=== PATIENT | male | born 1955 | race Caucasian/White ===

== ENCOUNTER 2018-03-15 09:26 | Emergency (ER) | payer MEDICAID ==
[~2018-03-15] VITALS: Ht 167.6 cm; Wt 74.5 kg
[2018-03-15 09:31] VITALS: BP 156/82
[2018-03-15] MEDS ORDERED: NACL 0.9% 1,000 ML IV ONE ×2 (09:55→10:45)
--- NOTE | 2018-03-15 10:02 | NUR ---
pt providing urine sample at this time
--- NOTE | 2018-03-15 10:10 | NUR ---
62 YO M BIB FRIEND W/ C/O WEAKNESS, POLYDIPSIA, POLYPHAGIA, POLYURIA, LOST OVER 50 POUNDS UNEXPECTEDLY. PT W/ C/O 8/10 RIGHT ARM PAIN/WEAKNESS AND "SPASMS" X A FEW WEEKS TO MONTHS. PT AOX4 TO PERSON, PLACE, TIME, AND SITUATION. GCS 15. PERRLA. EQUAL CLINICAL ACCOUNT SPECIALIST TO BL ARMS AND EQUAL PUSH AND PULL TO BL LEGS. AMBULATORY W/ STEADY GAIT. SPEAKING IN FULL, COMPLETE SENTENCES. RR ARE EVEN AND UNLABORED. ABD SOFT AND NON TENDER. NAD. VSS. AWAITING ER MD HERNANDEZ. PT CHANGED INTO GOWN AND TO CARDIAC, BP, PULSE, AND PULSE OX MONITORING. WILL CONTINUE TO MONITOR.
--- NOTE | 2018-03-15 10:10 | NUR ---
Note undone in EDM - 03/15/18 at 1610 by [email or web address] 62 YO M BIB FRIEND W/ C/O WEAKNESS, POLYDIPSIA, POLYPHAGIA, POLYURIA, LOST OVER 50 POUNDS UNEXPECTEDLY. PT W/ C/O 8/10 RIGHT ARM PAIN/WEAKNESS X A FEW WEEKS TO MONTHS. PT AOX4 TO PERSON, PLACE, TIME, AND SITUATION. GCS 15. AMBULATORY W/ STEADY GAIT. SPEAKING IN FULL, COMPLETE SENTENCES. RR ARE EVEN AND UNLABORED. ABD SFO AND NON TENDER. NAD. VSS. AWAITING ER MD HERNANDEZ. PT CHANGED INTO GOWN AND TO CARDIAC, BP, PULSE, AND PULSE OX MONITORING. WILL CONTINUE TO MONITOR.
[2018-03-15 10:16] LABS: BASOPHILS # (AUTO) 0.1 K/uL (0.00-0.22); BASOPHILS % (AUTO) 1.2 % (0.0-2.0); EOSINOPHILS # (AUTO) 0.1 K/uL (0-0.4); EOSINOPHILS % (AUTO) 1.5 % (0.0-4.0); HEMATOCRIT 42.7 % (36-52); LYMPHOCYTES # (AUTO) 0.9 K/uL (2.0-11.5); LYMPHOCYTES % (AUTO) 15.3 % (20.5-51.1); MEAN CORPUSCULAR HEMOGLOBIN 28 pg (27-31); MEAN CORPUSCULAR HGB CONC 33 g/dL (33-37); MEAN CORPUSCULAR VOLUME 86.6 fL (80-94); MONOCYTES # (AUTO) 0.3 K/uL (0.8-1.0); MONOCYTES % (AUTO) 5.6 % (1.7-9.3); NEUTROPHILS # (AUTO) 4.4 K/uL (1.8-7.7); NEUTROPHILS % (AUTO) 76.4 % (42.2-75.2); PLATELET COUNT (AUTO) 153 K/uL (140-450); RED BLOOD CELL COUNT(AUTO) 4.93 MIL/uL (4.20-6.10); RED CELL DISTRIBUTION WIDTH 13.6 % (11.6-13.7); WHITE BLOOD COUNT (AUTO) 5.8 K/uL (4.8-10.8)
[2018-03-15 10:20] LABS: APPEARANCE,URINE CLEAR (CLEAR); COLOR,URINE YELLOW (YELLOW); PH,URINE 6.5 (5.0-9.0)
[2018-03-15 10:21] LABS: BILIRUBIN,URINE NEGATIVE (NEGATIVE); BLOOD, URINE NEGATIVE (NEGATIVE); LEUKOCYTE ESTERASE ,URINE NEGATIVE (NEGATIVE); NITRITE, URINE NEGATIVE (NEGATIVE); UGLUCOSE 3+ (NEGATIVE)
--- NOTE | 2018-03-15 10:21 | NUR ---
ivfluids infusing w/o difficultly. nad. vss. will cotinue to monitor.
[2018-03-15 10:42] LABS: PROTHROMBIN TIME 9.4 secs (10.8-13.4); SODIUM SERUM 128 mmol/L (136-145)
[2018-03-15 10:43] LABS: ASPARTATE AMINOTRANSFERASE 18 U/L (15-37); CARBON DIOXIDE 28.5 mmol/L (21-32); CHLORIDE 91 mmol/L (98-107); GFR ARICAN-AMERICAN 98 mL/min (>90); POTASSIUM 4.5 mmol/L (3.5-5.1); TOTAL BILIRUBIN 0.5 mg/dL (0.0-1.0); UREA NITROGEN, BLOOD 24 mg/dL (7-18)
[2018-03-15 10:44] LABS: ACETONE, SERUM NEGATIVE (NEGATIVE); ALBUMIN 3.4 g/dL (3.4-5.0)
[2018-03-15 10:46] LABS: GLUCOSE 654 mg/dL (74-106)
[2018-03-15] MEDS ORDERED: INSULIN REGULAR, HUMAN 100 UNIT/ML VIAL SUBQ ONE (11:05)
--- NOTE | 2018-03-15 12:42 | NUR ---
er md carney by bedside re-evaluating patient
--- NOTE | 2018-03-15 13:22 | NUR ---
patient with no complaints. nad. vss. will continue to monitor.
--- NOTE | 2018-03-15 14:09 | NUR ---
ATTEMPTED TO CALL TO GIVE REPORT; ON HOLD FOR 15 MINS; INFORMED YUE VALDEZMARITIME GUARD
--- NOTE | 2018-03-15 14:30 | NUR ---
Patient appears to be resting comfortably in bed. Vital Signs within normal limits. Respirations even and unlabored. Pt is alert and talkative.
--- NOTE | 2018-03-15 15:55 | NUR ---
Patient to be transferred to [facility]. Is being transferred due to higher level of care. Receiving facility has accepting physician and available space. ER physician has signed transfer form. Patient or responsible republican has agreed to transfer and signed form. Patient belongings inventoried and will be sent with patient. Copy of nursing notes, lab reports, EKG, Physicians Orders and X-rays to be sent with patient. Bedside report called to Kiran VALDEZ at receiving facility. [facility] ambulance service has been called for transfer. ETA is 10 mins.
[2018-03-15 16:00] VITALS: BP 109/59
--- NOTE | 2018-03-15 16:00 | NUR ---
patient extied er with amr als via gurney without incident
== END 2018-03-15 16:00 | disposition short-term general hospital (02) ==
LOC: MED 09:26
DX: E11.65 Type 2 diabetes mellitus with hyperglycemia (principal); I61.9 Nontraumatic intracerebral hemorrhage, unspecified; E86.0 Dehydration
CPT/HCPCS: 36415; 36600; 70450; 71045; 80053; 81003; 82009; 82140; 82803; 82948; 84484; 85025; 85610; 85730; 93005; 96360; 96361; 96372; 99285; J1815; J7030; Q0092

== ENCOUNTER 2018-03-23 10:21 | Emergency (ER) | payer MEDICAID ==
[~2018-03-23] VITALS: Ht 170.2 cm; Wt 73.5 kg
[2018-03-23 10:28] VITALS: BP 135/90
--- NOTE | 2018-03-23 10:35 | NUR ---
PATIENT AMBULATED TO BED 7 AT THIS TIME.
--- NOTE | 2018-03-23 10:40 | NUR ---
bib friend with c/o hyperglycemia. Patient reports unable to get insulin d/t insurance coverage. Patient reports of feeling weak. Was discharge from [facility] 3 days ago. pt bed down, locked, bedrail up x 1, er md aware and notified of pt status. hx--diabetes rx--Insulin Glargine 20units bid, Insulin Lispro 10units tid
--- NOTE | 2018-03-23 11:15 | NUR ---
Jess ashraf in [facility] - 03/23/18 at 1205 by MEDFL pt taken to ct
--- NOTE | 2018-03-23 11:16 | NUR ---
pt taken to ct
--- NOTE | 2018-03-23 11:16 | NUR ---
Patient being evaluated by at bedside.
[2018-03-23] MEDS ORDERED: NACL 0.9% 1,000 ML IV ONE (11:25)
[2018-03-23] MEDS ORDERED: ONDANSETRON 4 MG/2 ML VIAL IVP ONE (11:25)
[2018-03-23] MEDS ORDERED: NACL 0.9% 1,000 ML IV SCH (11:25)
[2018-03-23] MEDS ORDERED: INSULIN REGULAR, HUMAN 100 UNIT/ML VIAL IVP ONE (11:25)
--- NOTE | 2018-03-23 11:25 | NUR ---
pt taken to ct
--- NOTE | 2018-03-23 11:36 | NUR ---
ekg being done at bedside
--- NOTE | 2018-03-23 12:03 | NUR ---
rt at bedside
[2018-03-23 12:04] LABS: BASOPHILS % (AUTO) 0.6 % (0.0-2.0); EOSINOPHILS # (AUTO) 0.1 K/uL (0-0.4); EOSINOPHILS % (AUTO) 1.5 % (0.0-4.0); HEMATOCRIT 44.6 % (36-52); HEMOGLOBIN 14.8 g/dL (12.0-18.0); LYMPHOCYTES % (AUTO) 16.3 % (20.5-51.1); MEAN CORPUSCULAR HEMOGLOBIN 29 pg (27-31); MEAN CORPUSCULAR HGB CONC 33 g/dL (33-37); MEAN CORPUSCULAR VOLUME 86.4 fL (80-94); MONOCYTES # (AUTO) 0.3 K/uL (0.8-1.0); MONOCYTES % (AUTO) 5.1 % (1.7-9.3); NEUTROPHILS # (AUTO) 4.9 K/uL (1.8-7.7); NEUTROPHILS % (AUTO) 76.5 % (42.2-75.2); PLATELET COUNT (AUTO) 188 K/uL (140-450); RED BLOOD CELL COUNT(AUTO) 5.16 MIL/uL (4.20-6.10); RED CELL DISTRIBUTION WIDTH 13.5 % (11.6-13.7); WHITE BLOOD COUNT (AUTO) 6.4 K/uL (4.8-10.8)
[2018-03-23 12:07] LABS: APPEARANCE,URINE CLEAR (CLEAR); BILIRUBIN,URINE NEGATIVE (NEGATIVE); BLOOD, URINE NEGATIVE (NEGATIVE); COLOR,URINE YELLOW (YELLOW); LEUKOCYTE ESTERASE ,URINE NEGATIVE (NEGATIVE); NITRITE, URINE NEGATIVE (NEGATIVE); UGLUCOSE 3+ (NEGATIVE)
[2018-03-23 12:12] LABS: ANION GAP 9.5 (8-16); CARBON DIOXIDE 32.6 mmol/L (21-32); CHLORIDE 98 mmol/L (98-107); CREATININE 0.8 mg/dL (0.7-1.3); GFR ARICAN-AMERICAN 126 mL/min (>90); GLUCOSE 371 mg/dL (74-106); POTASSIUM 4.1 mmol/L (3.5-5.1); SODIUM SERUM 136 mmol/L (136-145); UREA NITROGEN, BLOOD 21 mg/dL (7-18)
[2018-03-23 12:14] LABS: BARBITURATE, URINE NEG. ng/ml (NEG <=200); BENZODIAZEPINE, URINE NEG. ng/mL (NEG <=200); CANNABINOID, URINE NEG. ng/mL (NEG <=50); COCAINE, URINE NEG. ng/mL (NEG <=300); OPIATE, URINE NEG. ng/mL (NEG <=2000); PHENCYCLIDINE SCREEN,URINE NEG. ng/mL (NEG <=25)
--- NOTE | 2018-03-23 12:20 | NUR ---
RECEIVED CRITICAL REPORT FROM RADIOLOGY. REPORT GIVEN TO DR COLON.
[2018-03-23 12:24] LABS: ALBUMIN 3.8 g/dL (3.4-5.0); AMYLASE 68 U/L (25-115); ASPARTATE AMINOTRANSFERASE 22 U/L (15-37); LIPASE 259 U/L (73-393); TOTAL BILIRUBIN 0.7 mg/dL (0.0-1.0)
[2018-03-23 12:46] LABS: PROTHROMBIN TIME 10.3 secs (10.8-13.4)
[2018-03-23 12:51] LABS: D-DIMER < 100 ng/ml (0-400)
[2018-03-23 13:14] VITALS: BP 130/83
--- NOTE | 2018-03-23 13:14 | NUR ---
NS 1000ml bolus IVF end time 1314
--- NOTE | 2018-03-23 13:14 | NUR ---
Patient to be transferred to [facility]. Is being transferred due to higher level of care. Receiving facility has accepting physician and available space. ER physician has signed transfer form. Patient or responsible libertarian has agreed to transfer and signed form. Patient belongings inventoried and will be sent with patient. Copy of nursing notes, lab reports, EKG, Physicians Orders and X-rays to be sent with patient. Report called to chanel doan rn at receiving facility. [facility] ambulance service has been called for transfer. ETA is 1314.
--- NOTE | 2018-03-23 13:14 | NUR ---
NS 1000ml @ 100ml/hr end time 0870
[2018-03-23 13:18] LABS: ACETONE, SERUM NEGATIVE (NEGATIVE)
== END 2018-03-23 13:14 | disposition short-term general hospital (02) ==
LOC: MED 10:21
DX: I63.9 Cerebral infarction, unspecified (principal); E11.65 Type 2 diabetes mellitus with hyperglycemia; R94.31 Abnormal electrocardiogram [ECG] [EKG]
CPT/HCPCS: 36415; 36600; 70450; 80053; 80305; 81003; 82009; 82140; 82150; 82803; 82948; 83036; 83605; 83690; 83735; 84484; 85025; 85379; 85610; 85730; 93005; 96361; 96374; 96375; 99285; G0482; J1815; J2405; J7030

== ENCOUNTER 2018-03-24 09:47 | Emergency (ER) | payer MEDICAID ==
[~2018-03-24] VITALS: Ht 170.2 cm; Wt 73.9 kg
--- NOTE | 2018-03-24 09:58 | NUR ---
PATIENT AMBULATED TO BED 3 AT THIS TIME.
[2018-03-24 10:00] VITALS: BP 115/79
--- NOTE | 2018-03-24 10:05 | NUR ---
62Y/M BIB FRIEND WITH C/O ELEVATED BLOOD SUGAR. ACU CHECK 340. WAS DX WITH CRANIAL BLEED ON 03/15/18. WAS D/C YESTERDAY FOR CVA. PER PT UNABLE TO GET PRESCRIBED MEDICATION D/T PROBLEMS WITH INSURANCE. PT AAOX4, VSS AT THIS TIME, BED DOWN, BEDRAIL UP X 1, ER MD AWARE AND NOTIFIED OF PT STATUS. HX; CVA, DM RX; NOT TAKING
[2018-03-24] MEDS ORDERED: NACL 0.9% 500 ML IV ONE (10:25)
--- NOTE | 2018-03-24 10:26 | NUR ---
Patient being evaluated by physician at bedside.
[2018-03-24 10:39] LABS: BASOPHILS # (AUTO) 0.1 K/uL (0.00-0.22); BASOPHILS % (AUTO) 0.9 % (0.0-2.0); EOSINOPHILS # (AUTO) 0.1 K/uL (0-0.4); EOSINOPHILS % (AUTO) 2.1 % (0.0-4.0); HEMATOCRIT 40.4 % (36-52); HEMOGLOBIN 13.3 g/dL (12.0-18.0); LYMPHOCYTES # (AUTO) 0.8 K/uL (2.0-11.5); LYMPHOCYTES % (AUTO) 13.7 % (20.5-51.1); MEAN CORPUSCULAR HEMOGLOBIN 28 pg (27-31); MEAN CORPUSCULAR HGB CONC 33 g/dL (33-37); MEAN CORPUSCULAR VOLUME 86.4 fL (80-94); MONOCYTES # (AUTO) 0.4 K/uL (0.8-1.0); MONOCYTES % (AUTO) 6.5 % (1.7-9.3); NEUTROPHILS # (AUTO) 4.7 K/uL (1.8-7.7); NEUTROPHILS % (AUTO) 76.8 % (42.2-75.2); PLATELET COUNT (AUTO) 169 K/uL (140-450); RED BLOOD CELL COUNT(AUTO) 4.68 MIL/uL (4.20-6.10); RED CELL DISTRIBUTION WIDTH 13.1 % (11.6-13.7); WHITE BLOOD COUNT (AUTO) 6.1 K/uL (4.8-10.8)
[2018-03-24 10:46] LABS: ANION GAP 9.9 (8-16); CARBON DIOXIDE 30.1 mmol/L (21-32); CHLORIDE 99 mmol/L (98-107); CREATININE 0.8 mg/dL (0.7-1.3); GFR ARICAN-AMERICAN 126 mL/min (>90); GLUCOSE 357 mg/dL (74-106); SODIUM SERUM 135 mmol/L (136-145); UREA NITROGEN, BLOOD 22 mg/dL (7-18)
[2018-03-24 10:49] LABS: ACETONE, SERUM NEGATIVE (NEGATIVE)
[2018-03-24 10:52] LABS: ALBUMIN 3.2 g/dL (3.4-5.0); ASPARTATE AMINOTRANSFERASE 16 U/L (15-37); TOTAL BILIRUBIN 0.5 mg/dL (0.0-1.0)
--- NOTE | 2018-03-24 11:59 | NUR ---
Escrow Clerk Note: I was informed by Noemi Baxter from Emergency Room, patient and patient's caregiver Margo stated they are having difficulty filling patient's prescription/s due to health insurance coverage. I met with patient and Margo at bedside. Per Margo, she went to [facility] and she was told patient's health insurance is not active. I called [facility] and spoke with Rosie, I asked her what type of insurance had Margo and/or patient provided them with. Per Rosie, Margo provided them with an IEHP card. Patients face sheet indicates he has [employer] coverage, policy #[id number], not IEHP. I provided Rosie with patients Medical policy number and requested for her to please check patient's [employer] eligibility. Per Rosie, patient's [employer] is active. Rosie told me to tell Margo to go back to their pharmacy and take prescriptions so they can check whether prescriptions can be covered by [employer]. I explained to Margo she had provided [facility] with an IEHP card that was not longer valid and explained to her patient currently has [employer] coverage. I provided Margo with [employer] policy number and instructed her to return to [facility] and provide them with prescription. She verbalized understanding and left. I called and spoke with Rosie from [facility]. Per Rosie, Margo went to their pharmacy and was able fill patient's prescription.
[2018-03-24] MEDS ORDERED: INSULIN REGULAR, HUMAN 100 UNIT/ML VIAL IVP ONE (12:20)
[2018-03-24 13:18] VITALS: BP 120/81
--- NOTE | 2018-03-24 13:18 | NUR ---
Patient discharged with v/s stable. Written and verbal after care instructions given and explained. Patient verbalized understanding. Ambulatory with steady gait. All questions addressed prior to discharge. Advised to follow up with PMD.
== END 2018-03-24 13:18 | disposition home or self-care (01) ==
LOC: MED 09:47
DX: E11.65 Type 2 diabetes mellitus with hyperglycemia (principal); Z86.73 Personal history of transient ischemic attack (TIA), and cerebral infarction without residual deficits
CPT/HCPCS: 36415; 80053; 82009; 82948; 85025; 96372; 99283; J1815; J7030

== ENCOUNTER 2018-04-01 09:11 | Inpatient (IN) | payer MEDICAID ==
[2018-04-01] VITALS (7 sets, daily range): BP systolic 125–148; BP diastolic 78–92
[~2018-04-01] VITALS: Ht 170.2 cm; Wt 68.0 kg
--- NOTE | 2018-04-01 09:14 | NUR ---
Patient wheelchair assisted to bed 10.
[2018-04-01] MEDS ORDERED: LANTUS SUBQ (09:16)
[2018-04-01] MEDS ORDERED: HUM SUBQ (09:16)
--- NOTE | 2018-04-01 09:29 | NUR ---
62 YO MALE BIB FRIEND VIA WHEELCHAIR FOR SUDDEN ONSET OF GENERAL WEKNESS X 7.30 THIS AM, HX OF CVA, DM. SEEN HERE TWICE FOR INTRACRANIAL BLEED. PT REPORTED HE FEEL WEAK LEFT LEG X THIS AM. SKIN IS PINK/WARM/DRY; AAOX4 .LUNGS CLEAR BL; HR EVEN AND REGULAR; PT DENIES ANY FEVER, CP, SOB, OR COUGH AT THIS TIME; PATIENT STATES PAIN OF 0/10 AT THIS TIME. PATIENT POSITIONED FOR COMFORT; HOB ELEVATED; BEDRAILS UP X2; BED DOWN. ER MD MADE AWARE OF PT STATUS.
--- NOTE | 2018-04-01 09:32 | NUR ---
Patient being evaluated by DR CONKLIN at bedside.
[2018-04-01] MEDS ORDERED: INSULIN REGULAR, HUMAN 100 UNIT/ML VIAL SUBQ ONE (09:40)
[2018-04-01] MEDS ORDERED: NACL 0.9% 1,000 ML IV ONE (09:40)
[2018-04-01 09:56] LABS: BASOPHILS # (AUTO) 0.1 K/uL (0.00-0.22); BASOPHILS % (AUTO) 0.8 % (0.0-2.0); EOSINOPHILS # (AUTO) 0.1 K/uL (0-0.4); EOSINOPHILS % (AUTO) 2.2 % (0.0-4.0); HEMATOCRIT 43.8 % (36-52); HEMOGLOBIN 14.4 g/dL (12.0-18.0); LYMPHOCYTES % (AUTO) 14.9 % (20.5-51.1); MEAN CORPUSCULAR HEMOGLOBIN 29 pg (27-31); MEAN CORPUSCULAR HGB CONC 33 g/dL (33-37); MEAN CORPUSCULAR VOLUME 86.5 fL (80-94); MONOCYTES # (AUTO) 0.3 K/uL (0.8-1.0); NEUTROPHILS % (AUTO) 77.1 % (42.2-75.2); PLATELET COUNT (AUTO) 172 K/uL (140-450); RED BLOOD CELL COUNT(AUTO) 5.06 MIL/uL (4.20-6.10); RED CELL DISTRIBUTION WIDTH 13.3 % (11.6-13.7); WHITE BLOOD COUNT (AUTO) 6.5 K/uL (4.8-10.8)
[2018-04-01 10:14] LABS: ALBUMIN 3.7 g/dL (3.4-5.0); ANION GAP 12.2 (8-16); ASPARTATE AMINOTRANSFERASE 19 U/L (15-37); CARBON DIOXIDE 27.9 mmol/L (21-32); CHLORIDE 104 mmol/L (98-107); CREATININE 0.7 mg/dL (0.7-1.3); GFR ARICAN-AMERICAN 147 mL/min (>90); GLUCOSE 258 mg/dL (74-106); POTASSIUM 4.1 mmol/L (3.5-5.1); SODIUM SERUM 140 mmol/L (136-145); TOTAL BILIRUBIN 0.7 mg/dL (0.0-1.0); UREA NITROGEN, BLOOD 16 mg/dL (7-18)
--- NOTE | 2018-04-01 10:21 | NUR ---
PT URENATED 450 CC; YELLOW. SPECIMEN SENT TO LAB
[2018-04-01 10:34] LABS: PROTHROMBIN TIME 9.8 secs (10.8-13.4)
[2018-04-01 11:03] LABS: APPEARANCE,URINE CLEAR (CLEAR); BILIRUBIN,URINE NEGATIVE (NEGATIVE); BLOOD, URINE NEGATIVE (NEGATIVE); COLOR,URINE YELLOW (YELLOW); LEUKOCYTE ESTERASE ,URINE NEGATIVE (NEGATIVE); NITRITE, URINE NEGATIVE (NEGATIVE); UGLUCOSE 2+ (NEGATIVE)
[2018-04-01 11:04] LABS: BARBITURATE, URINE NEG. ng/ml (NEG <=200); BENZODIAZEPINE, URINE NEG. ng/mL (NEG <=200); CANNABINOID, URINE NEG. ng/mL (NEG <=50); COCAINE, URINE NEG. ng/mL (NEG <=300); OPIATE, URINE NEG. ng/mL (NEG <=2000); PHENCYCLIDINE SCREEN,URINE NEG. ng/mL (NEG <=25)
--- NOTE | 2018-04-01 11:11 | NUR ---
PT URENATED 400 CC ;YELLOW.
[2018-04-01] MEDS ORDERED: HYDROcodone/APAP 5/325 MG 1 TAB TAB PO PRN (11:40)
[2018-04-01] MEDS ORDERED: ACETAMINOPHEN 325 MG TAB PO PRN (11:40)
[2018-04-01] MEDS ORDERED: ONDANSETRON 4 MG/2 ML VIAL IM/IVP PRN (11:40)
[2018-04-01] MEDS ORDERED: DOCUSATE SODIUM 100 MG GELCAP PO PRN (11:40)
[2018-04-01] MEDS ORDERED: LORazepam 2 MG/ML VIAL IM/IVP PRN (11:40)
--- NOTE | 2018-04-01 11:56 | NUR ---
Patient appears to be resting comfortably in bed. Vital Signs within normal limits. Respirations even and unlabored.WILL CONTINUE TO MONITOR.
--- NOTE | 2018-04-01 12:20 | NUR ---
RECEIVED REPORT FROM ED RN. PT IN STABLE CONDITION. DENIES PAIN AND DISCOMFORT AT THIS TIME. PT IS AMBULATORY BUT VERY WEAK ON LEFT SIDE. DECREASED STRENGTH OF LLE AND LUE. DENIES NUMBNESS, TINGLING, NASCIMENTO, LIGHTHEADNESS/DIZZINESS, SOB. SMILE/FROWN EQUAL BILATERALLY. SKIN INTACT. HEART RHYTHM REGULAR. LUNGS CTA. SR ON TELE. VITALS STABLE. ALL SAFETY PRECAUTIONS INITIATED, WILL CONTINUE TO MONITOR.
--- NOTE | 2018-04-01 12:22 | NUR ---
Patient will be admitted to care of DR CAMEJO. Admited to TELE. Will go to room 107B. Belongings list completed. Report to JACOB VALDEZ.
[2018-04-01] MEDS: NACL 0.9% 1,000 ML IV SCH (13:13)
--- NOTE | 2018-04-01 14:02 | NUR ---
ADMISSION HISTORY OBTAINED FROM PATIENT, FRIEND AT BEDSIDE, AND MEDICAL RECORDS.
[2018-04-01] MEDS ORDERED: DEXTROSE 50% 50 ML SYR IVP PRN (14:05)
[2018-04-01 14:15] LABS: MAGNESIUM 1.8 mg/dL (1.8-2.4); THYROID STIMULATING HORMONE 3.02 uIU/mL (0.34-3.74)
[2018-04-01] MEDS: BLOOD GLUCOSE MONITORING 1 DEV DEV FS SCH ×2 (16:38→20:26)
[2018-04-01] MEDS: INSULIN LISPRO SLIDING SCALE 100 UNITS/ML VIAL SUBQ PRN ×2 (16:40→20:27)
--- NOTE | 2018-04-01 17:23 | NUR ---
PT SITTING UP IN BED, WATCHING TV. NO C/O PAIN OR DISCOMFORT. WILL CONTINUE TO MONITOR.
--- NOTE | 2018-04-01 18:50 | NUR ---
ORTHOSTATIC BP OBTAINED AND CHARTED. PT IS ABLE TO STAND UP WITH ASSIST AND CONTINUE STANDING INDEPENDENTLY BUT ADMITS TO FATIGUE WITH STANDING.
--- NOTE | 2018-04-01 19:28 | NUR ---
ENDORSED POC TO GRADES 7 AND 8 VISITING TEACHER RN. PT IN STABLE CONDITION.
--- NOTE | 2018-04-01 19:30 | NUR ---
RECEIVED FROM AM RN IN BED AWAKE AND TALKING ON THE PHONE WITH FAMILY MEMBER. ABLE TO VERBALIZE SIMPLE NEEDS IN SLOVAK AND CHINESE. CALL LIGHT WITH IN REACH AND NO NOTED RESTLESSNESS. TELEMETRY MONITORING. DX. OF LEFT LEG WEAKNESS. RAPID RESPONSE RE-ORIENTED.
--- NOTE | 2018-04-01 23:12 | NUR ---
SLEEPING. WAKES UP EASILY WHEN TOUCHED RT VITAL SIGNS TAKEN. NO COMPLAINTS DONE. SLEPT BACK EASILY. TELEMETRY MONITORING. IVF SITE INTACT AND NO INFILTRATION.
[2018-04-02] VITALS: BP 134/85
--- NOTE | 2018-04-02 02:10 | NUR ---
SEEN PT. AWAKE AND USED URINAL AT THE EDGE OF HIS BED. INDEPENDENT. NO SOB.
[2018-04-02] MEDS: NACL 0.9% 1,000 ML IV SCH ×2 (03:43→20:35)
--- NOTE | 2018-04-02 04:48 | NUR ---
SLEEPING WELL THIS SHIFT. NO COMPLAINTS DONE.
[2018-04-02] MEDS: BLOOD GLUCOSE MONITORING 1 DEV DEV FS SCH ×4 (05:55→20:35)
[2018-04-02] MEDS: INSULIN LISPRO SLIDING SCALE 100 UNITS/ML VIAL SUBQ PRN ×4 (05:57→20:54)
--- NOTE | 2018-04-02 06:20 | NUR ---
PATIENT HAS BEEN SCREENED AND CATEGORIZED HIGH NUTRITION RISK. PATIENT WILL BE SEEN WITHIN 1-2 DAYS OF ADMISSION. 04/02/18-04/03/18 BARBARA RODAS MS, RDN
--- NOTE | 2018-04-02 06:58 | NUR ---
PT. AWAKE AND WATCHING TV. NO COMPLAINTS OF ANY PAIN AT THIS TIME. ABLE TO VERBALIZE SIMPLE NEEDS. TELEMETRY MONITORING.
[2018-04-02 07:20] LABS: BASOPHILS # (AUTO) 0.1 K/uL (0.00-0.22); BASOPHILS % (AUTO) 1.3 % (0.0-2.0); EOSINOPHILS # (AUTO) 0.1 K/uL (0-0.4); EOSINOPHILS % (AUTO) 2.1 % (0.0-4.0); HEMATOCRIT 43.8 % (36-52); HEMOGLOBIN 14.4 g/dL (12.0-18.0); LYMPHOCYTES # (AUTO) 1.2 K/uL (2.0-11.5); LYMPHOCYTES % (AUTO) 18.5 % (20.5-51.1); MEAN CORPUSCULAR HEMOGLOBIN 29 pg (27-31); MEAN CORPUSCULAR HGB CONC 33 g/dL (33-37); MEAN CORPUSCULAR VOLUME 86.6 fL (80-94); MONOCYTES # (AUTO) 0.3 K/uL (0.8-1.0); MONOCYTES % (AUTO) 4.7 % (1.7-9.3); NEUTROPHILS # (AUTO) 4.9 K/uL (1.8-7.7); NEUTROPHILS % (AUTO) 73.4 % (42.2-75.2); PLATELET COUNT (AUTO) 152 K/uL (140-450); RED BLOOD CELL COUNT(AUTO) 5.06 MIL/uL (4.20-6.10); RED CELL DISTRIBUTION WIDTH 13.2 % (11.6-13.7); WHITE BLOOD COUNT (AUTO) 6.7 K/uL (4.8-10.8)
--- NOTE | 2018-04-02 07:20 | NUR ---
RECEIVED REPORT FROM SUPERVISOR PROP MAKING NURSE FOR CONTINUITY OF CARE. PT IN STABLE CONDITION. RESPIRATIONS EVEN AND UNLABORED. IV INTACT AND PATENT. SAFETY MEASURES IN PLACE. CALL LIGHT AT BEDSIDE. BED IN LOW POSITION. WILL CONTINUE TO MONITOR.
[2018-04-02 07:51] LABS: CARBON DIOXIDE 32.1 mmol/L (21-32); CREATININE 0.7 mg/dL (0.7-1.3); POTASSIUM 4.1 mmol/L (3.5-5.1)
[2018-04-02 08:00] VITALS: BP 134/82
[2018-04-02 08:03] LABS: CHOL/HDL RATIO 3.7 (1-4.5)
--- NOTE | 2018-04-02 08:10 | NUR ---
ASSISTED PT TO RESTROOM. PT ABLE TO AMBULATE WITH ASSIST. PT TOLERATED WELL. WILL CONTINUE TO MONITOR.
[2018-04-02 08:15] LABS: MAGNESIUM 1.8 mg/dL (1.8-2.4); PHOSPHORUS 3.6 mg/dL (2.5-4.9)
[2018-04-02 12:00] VITALS: BP 130/75
--- NOTE | 2018-04-02 13:45 | NUR ---
ASSISTED TO BEDSIDE COMMODE. LARGE SOLID BOWEL MOVEMENT AT THIS TIME. WILL CONTINUE TO MONITOR.
[2018-04-02] MEDS ORDERED: DOCUSATE 100 MG/10 ML UDC GT PRN (14:05)
--- NOTE | 2018-04-02 14:16 | NUR ---
SPOKE TO JAI A FRIEND OF THE PT. PT WILL NOT BE ABLE TO RETURN HOME DUE TO CARE NEEDS. JAI WOULD LIKE TO TALK TO CASE MANAGEMENT TO DISCUSS ALTERNATIVES.
--- NOTE | 2018-04-02 15:02 | NUR ---
PT LYING IN BED SLEEPING AT THIS TIME. RESPIRATIONS EVEN AND UNLABORED. WILL CONTINUE TO MONITOR.
[2018-04-02 16:00] VITALS: BP 118/70
--- NOTE | 2018-04-02 18:53 | NUR ---
WILL GIVE REPORT TO RN LABOR DELIVERY NURSE FOR CONTINUITY OF CARE. PT IN STABLE CONDITION.
--- NOTE | 2018-04-02 19:00 | NUR ---
RECEIVED REPORT FROM DAY SHIFT NURSE NELSON-RN AT BEDSIDE. PT RESTING IN BED, AOX4- INDONESIAN SPEAKING, ON ROOM AIR WITH RIGHT AC #20G RUNNING NS @ 60ML/HR. DISCUSSED PLAN OF CARE AND PT VERBALIZED UNDERSTANDING. NO S/S OF RESPIRATORY DISTRESS OR DISCOMFORT NOTED AT THIS TIME. BED IN LOWEST POSITION, BED BREAKS ON, BOTH SIDE RAILS UP AND FALL PRECAUTIONS IN PLACE. BEDSIDE TABLE AND CALL LIGHT ARE WITHIN REACH. WILL CONTINUE TO MONITOR.
[2018-04-02 20:00] VITALS: BP 139/82
--- NOTE | 2018-04-02 20:00 | NUR ---
VITAL SIGNS TAKEN AND TOLERATED WELL. BLOOD GLUCOSE 219- WILL ADMINISTER INSULIN COVERAGE. NO S/S OF RESPIRATORY DISTRESS OR DISCOMFORT NOTED AT THIS TIME. WILL CONTINUE TO MONITOR.
--- NOTE | 2018-04-02 20:54 | NUR ---
INSULIN COVERAGE GIVEN AND TOLERATED WELL. NO S/S OF RESPIRATORY DISTRESS OR DISCOMFORT NOTED AT THIS TIME. WILL CONTINUE TO MONITOR.
[2018-04-02] MEDS ORDERED: ZOLPIDEM 5 MG TAB PO SCH (21:50)
--- NOTE | 2018-04-02 22:29 | NUR ---
PT C/O INSOMNIA. SPOKE WITH DR. SINGLETON AND SHE ORDERED AMBIEN. MEDICATION WAS ADMINISTERED AND TOLERATED WELL. NO S/S OF RESPIRATORY DISTRESS OR DISCOMFORT NOTED AT THIS TIME. WILL CONTINUE TO MONITOR.
[2018-04-03] VITALS: BP 121/68
--- NOTE | 2018-04-03 | NUR ---
VITAL SIGNS TAKEN AND TOLERATED WELL. NO S/S OF RESPIRATORY DISTRESS OR DISCOMFORT NOTED AT THIS TIME. WILL CONTINUE TO MONITOR.
--- NOTE | 2018-04-03 02:00 | NUR ---
PT CONTINUES TO SLEEP IN BED. NO S/S OF RESPIRATORY DISTRESS OR DISCOMFORT NOTED AT THIS TIME. WILL CONTINUE TO MONITOR.
[2018-04-03 04:00] VITALS: BP 111/54
--- NOTE | 2018-04-03 04:00 | NUR ---
VITAL SIGNS TAKEN AND TOLERATED WELL. NO S/S OF RESPIRATORY DISTRESS OR DISCOMFORT NOTED AT THIS TIME. WILL CONTINUE TO MONITOR.
--- NOTE | 2018-04-03 06:00 | NUR ---
BLOOD GLUCOSE 174- WILL ADMINISTER INSULIN COVERAGE. NO S/S OF RESPIRATORY DISTRESS OR DISCOMFORT NOTED AT THIS TIME. WILL CONTINUE TO MONITOR.
[2018-04-03] MEDS: BLOOD GLUCOSE MONITORING 1 DEV DEV FS SCH ×4 (06:24→21:56)
[2018-04-03] MEDS: INSULIN LISPRO SLIDING SCALE 100 UNITS/ML VIAL SUBQ PRN ×4 (06:26→21:59)
--- NOTE | 2018-04-03 06:26 | NUR ---
INSULIN COVERAGE GIVEN AND TOLERATED WELL. NO S/S OF RESPIRATORY DISTRESS OR DISCOMFORT NOTED AT THIS TIME. WILL CONTINUE TO MONITOR.
[2018-04-03 06:42] LABS: ANION GAP 8.9 (8-16); CARBON DIOXIDE 29.1 mmol/L (21-32); CREATININE 0.7 mg/dL (0.7-1.3)
[2018-04-03 06:45] LABS: MAGNESIUM 1.7 mg/dL (1.8-2.4); PHOSPHORUS 3.7 mg/dL (2.5-4.9)
--- NOTE | 2018-04-03 07:15 | NUR ---
RECEIVED REPORT FROM DIRECTOR STRATEGIC ACCOUNT MANAGEMENT NURSE AT BEDSIDE. PT RESTING IN BED, AAOX4, NO S/S OF ACUTE DISTRESS ON ROOM AIR. IV NOTED TO RIGHT AC, #20G, PATENT AND INTACT, RUNNING NS AT 60ML/HR. BED IN LOWEST POSITION, BED BRAKES ON, BED ALARM ON AND FALL PRECAUTIONS IN PLACE. BEDSIDE TABLE AND CALL LIGHT ARE WITHIN REACH. WILL CONTINUE TO MONITOR.
--- NOTE | 2018-04-03 07:19 | NUR ---
ENDORSED PT CARE TO DAY SHIFT NURSE SID FOR CONTINUITY OF CARE.
[2018-04-03 08:00] VITALS: BP 117/81
--- NOTE | 2018-04-03 08:00 | NUR ---
PT HAS EQUAL AND GOOD STOCK PITCHER STRENGTH BUE, HOWEVER, WHEN HELPING PT SITTING UP AT THE EDGE OF THE BED, PT LEANING TOWARD THE LEFT SIDE. PLANTAR FLEXION ARE GOOD ON BLE. LEFT SIDE IS SLIGHTLY WEAK. Addendum: 04/03/18 at 1415 by Nabeel Lawton RN PT IS EATING BREAKFAST AT THE BEDSIDE RIGHT NOW. NO S/S OF ACUTE DISTRESS.
[2018-04-03 08:19] LABS: BASOPHILS % (AUTO) 0.6 % (0.0-2.0); EOSINOPHILS # (AUTO) 0.1 K/uL (0-0.4); EOSINOPHILS % (AUTO) 2.4 % (0.0-4.0); HEMATOCRIT 41.2 % (36-52); HEMOGLOBIN 13.5 g/dL (12.0-18.0); LYMPHOCYTES # (AUTO) 1.3 K/uL (2.0-11.5); LYMPHOCYTES % (AUTO) 25.1 % (20.5-51.1); MEAN CORPUSCULAR HEMOGLOBIN 28 pg (27-31); MEAN CORPUSCULAR HGB CONC 33 g/dL (33-37); MEAN CORPUSCULAR VOLUME 86.1 fL (80-94); MONOCYTES # (AUTO) 0.3 K/uL (0.8-1.0); NEUTROPHILS # (AUTO) 3.4 K/uL (1.8-7.7); NEUTROPHILS % (AUTO) 65.9 % (42.2-75.2); PLATELET COUNT (AUTO) 148 K/uL (140-450); RED BLOOD CELL COUNT(AUTO) 4.79 MIL/uL (4.20-6.10); RED CELL DISTRIBUTION WIDTH 12.9 % (11.6-13.7); WHITE BLOOD COUNT (AUTO) 5.2 K/uL (4.8-10.8)
[2018-04-03] MEDS ORDERED: METF500T PO (08:20)
[2018-04-03] MEDS ORDERED: MAGNESIUM OXIDE 400 MG TAB PO SCH (08:30)
--- NOTE | 2018-04-03 09:10 | NUR ---
PT WALKED WITH WALKER WITH PHYSICAL THERAPIST. Addendum: 04/03/18 at 1635 by Nabeel Lawton RN UNSTEADY GAIT
[2018-04-03 12:00] VITALS: BP 139/88
[2018-04-03] MEDS: NACL 0.9% 1,000 ML IV SCH (12:25)
--- NOTE | 2018-04-03 14:10 | NUR ---
FAXED ORDER FRO FWW TO KIKE CANNON [phone] HE SAID TO FAX FACE SHEET AND ORDER TO HIM AT [phone]
--- NOTE | 2018-04-03 15:21 | NUR ---
SPOKE WITH KIKE FROM [facility]. HE WILL BE IN SOON TO SEE THE PATIENT.
[2018-04-03 16:00] VITALS: BP 140/92
--- NOTE | 2018-04-03 16:05 | NUR ---
RECEIVED MEDICAL RECORD FROM [facility], GAVE TO DR COLMENARES.
--- NOTE | 2018-04-03 16:35 | NUR ---
WALKER DELIVERED TO PT, LEFT AT THE BEDSIDE. PT TRIED IT WITH ASSISTANCE, PT HAS POOR COORDINATION AND SHUFFLING GAIT. HELPED PT BACK TO BED. BED ALARM ON. CALL LIGHT WITHIN REACH. PT'S SON AT BEDSIDE.
[2018-04-03] MEDS: metFORMIN 500 MG TAB PO SCH (16:50)
[2018-04-03] MEDS: INSULIN LANTUS 100 UNITS/ML 10 ML VIAL SUBQ SCH (16:53)
--- NOTE | 2018-04-03 19:20 | NUR ---
ENDORSED PT TO LITHOGRAPHIC CAMERA OPERATOR. PT RESTING IN BED, IN STABLE CONDITION.
--- NOTE | 2018-04-03 19:21 | NUR ---
RECEIVED REPORT FROMAM SHIFT NURSE AT BEDSIDE. PT RESTING IN BED, AAOX4, NO S/S OF ACUTE DISTRESS ON ROOM AIR. IV NOTED TO RIGHT AC, 20G, PATENT AND INTACT, INFUSING WELL NS AT 60ML/HR. BED IN LOWEST POSITION, , BED ALARM ON AND FALL PRECAUTIONS IN PLACE. BEDSIDE TABLE AND CALL LIGHT ARE WITHIN REACH. WILL CONTINUE TO MONITOR.
[2018-04-03 20:00] VITALS: BP 141/87
[2018-04-03] MEDS ORDERED: PNEUMOCOCCAL VACCINE 23 MCG/0.5 ML VIAL IMVAC PRN (20:45)
[2018-04-03] MEDS ORDERED: INFLUENZA VIRUS VACCINE QUAD 0.5 ML SYR IMVAC PRN (20:45)
--- NOTE | 2018-04-03 22:49 | NUR ---
TO SOCIAL SERVICE: [facility] [phone], PENDING TRANSFER TO A REHAB FACILITY DUE TO MEDI-PREM/ INSURANCE LIMITATION(ONLY HAVING MEDI-PREM EMERGENCY). GOT NO. FROM JAI, PT'S FRIEND WHO CALLED THIS PT.
--- NOTE | 2018-04-03 22:52 | NUR ---
TO DR SARABIA: PLS NOTE THAT JAI,FRIEND OF PT, SAID SHE WANTS TO TALK TO DR. SHE WANTS PT TO FLY BACK TO [facility], AND NEED TO KNOW THE RESULT OF THE SCAN IF HE IS FIT TO FLY.SHE ALSO WANTS A COPY OF THE SCAN IF POSSIBLE. SISTER OF PATIENT IS A PHYSICIAN IN [place]
--- NOTE | 2018-04-03 22:56 | NUR ---
[facility] #[id number]
[2018-04-04] VITALS: BP 140/80
[2018-04-04 04:00] VITALS: BP 140/80
[2018-04-04] MEDS: BLOOD GLUCOSE MONITORING 1 DEV DEV FS SCH ×3 (06:12→16:50)
[2018-04-04] MEDS: INSULIN LISPRO SLIDING SCALE 100 UNITS/ML VIAL SUBQ PRN ×2 (06:13→12:31)
[2018-04-04] MEDS: NACL 0.9% 1,000 ML IV SCH (06:17)
--- NOTE | 2018-04-04 07:10 | NUR ---
RECEIVED REPORT FROM ELECTRICIAN APPRENTICE NURSE AT BEDSIDE. PT RESTING IN BED, AAOX4, NO S/S OF ACUTE DISTRESS ON ROOM AIR. IV NOTED TO RIGHT AC, #20G, PATENT AND INTACT, RUNNING NS AT 60ML/HR. BED IN LOWEST POSITION, BED BRAKES ON, BED ALARM ON AND FALL PRECAUTIONS IN PLACE. BEDSIDE TABLE AND CALL LIGHT ARE WITHIN REACH. WILL CONTINUE TO MONITOR.
--- NOTE | 2018-04-04 07:15 | NUR ---
ENDORSED PT TO VIDEO INTERN. PT RESTING IN BED, IN STABLE CONDITION
[2018-04-04 07:28] LABS: BASOPHILS % (AUTO) 0.7 % (0.0-2.0); EOSINOPHILS # (AUTO) 0.1 K/uL (0-0.4); HEMATOCRIT 41.1 % (36-52); HEMOGLOBIN 13.5 g/dL (12.0-18.0); LYMPHOCYTES # (AUTO) 1.1 K/uL (2.0-11.5); LYMPHOCYTES % (AUTO) 18.6 % (20.5-51.1); MEAN CORPUSCULAR HEMOGLOBIN 28 pg (27-31); MEAN CORPUSCULAR HGB CONC 33 g/dL (33-37); MEAN CORPUSCULAR VOLUME 86.2 fL (80-94); MONOCYTES # (AUTO) 0.4 K/uL (0.8-1.0); NEUTROPHILS # (AUTO) 4.4 K/uL (1.8-7.7); NEUTROPHILS % (AUTO) 71.7 % (42.2-75.2); PLATELET COUNT (AUTO) 158 K/uL (140-450); RED BLOOD CELL COUNT(AUTO) 4.77 MIL/uL (4.20-6.10); RED CELL DISTRIBUTION WIDTH 12.9 % (11.6-13.7); WHITE BLOOD COUNT (AUTO) 6.1 K/uL (4.8-10.8)
[2018-04-04] MEDS: INSULIN LANTUS 100 UNITS/ML 10 ML VIAL SUBQ SCH ×2 (07:34→17:16)
[2018-04-04 08:00] VITALS: BP 129/89
[2018-04-04 08:38] LABS: ANION GAP 9.1 (8-16); CARBON DIOXIDE 29.6 mmol/L (21-32); CREATININE 0.7 mg/dL (0.7-1.3); POTASSIUM 3.7 mmol/L (3.5-5.1)
[2018-04-04 08:50] LABS: MAGNESIUM 1.8 mg/dL (1.8-2.4); PHOSPHORUS 4.3 mg/dL (2.5-4.9)
[2018-04-04] MEDS: metFORMIN 500 MG TAB PO SCH ×2 (08:54→17:00)
[2018-04-04] MEDS ORDERED: ATORVASTATIN 20 MG TAB PO SCH (09:00)
--- NOTE | 2018-04-04 10:10 | NUR ---
PT WALKED WITH WALKER WITH PHYSICAL THERAPIST TO END OF THE HALLWAY, AND RETURNED TO HIS ROOM. GAIT UNSTEADY.
--- NOTE | 2018-04-04 10:30 | NUR ---
PT STILL WEAK ON LEFT SIDE, UPPER AND LOWER EXTREMITIES. NO FACIAL DROOLING, ABLE TO RAISE BOTH EYEBROWS, SMILE IS SYMMETRICAL.
--- NOTE | 2018-04-04 11:40 | NUR ---
Banking Specialist Note: Note for 04/03/18: I faxed inquiries to [facility], phone number and [facility], phone number . I called [facility] multiple times, spoke with manager compensation of admissions dept Gladys and their clinical liaison Angelica . Both Gladys and Angelica stated they had to review inquiry and would call me back tomorrow to let me know if they can accept patient. I left messages for Adrianna at [facility] , no call back. Today 04/04/18: I called and spoke with Angelica from [facility], she stated she will let me know if they can accept patient by noon today. I called and spoke with Adrianna at [facility], she requested I fax MRI result and neurologic documentation from [facility]. She also requested CT head. I faxed information Adrianna requested to [facility]. Adrianna called me back and stated she reviewed information I faxed and it does not indicate patient had a stroke, therefore, they are unable to accept patient. I met with patient at bedside. I informed him I had referred him to [facility] and [facility]. I told him [facility] was not able to accept him and I was still waiting for [facility] response. I explained to him I was not able refer him to a correction facility because physical therapy is not covered by [facility] benefits. He verbalized understanding. He stated he already spoke with his friend Margo and she is willing to let him stay in her home upon discharge and assist him with ADLs.
--- NOTE | 2018-04-04 11:55 | NUR ---
04/04/18 RD INITIAL ASSESSMENT COMPLETED PLEASE REFER TO NUTRITION ASSESSMENT UNDER CARE ACTIVITY FOR ESTIMATED NUTRITIONAL NEEDS. 1. CONTINUE CCHO 60 GM DIET TOLERATED 2. RD PROVIDED NUTRITION EDUCATION ON DIABETES 3. RD TO FOLLOW-UP 5-7 DAYS, LOW RISK OSCAR MARTINEZ RD
[2018-04-04 12:00] VITALS: BP 113/70
--- NOTE | 2018-04-04 14:03 | NUR ---
Wire Drawing Die Maker Note: Per clinical liaison Angelica from [facility], she is waiting for their director�s decision on whether they can accept patient or not. I instructed Angelica to please call charge nurse Brandyn and let her know if they can or cannot accept patient, charge nurse Brandyn made aware. I provided Angelica with telemetry�s phone number. I called and spoke with patient�s sister Paulina Dawn , she stated patient can go to her home upon discharge upon today if [facility] is not able to accommodate patient.
--- NOTE | 2018-04-04 15:13 | NUR ---
CLINICAL LIAISON DODIE CALLED AND GAVE BED RM [address] ARNDT REPORT TO OR . ADDRESS [address] [place] [id number].
--- NOTE | 2018-04-04 15:30 | NUR ---
SPOKE WITH JAMAL CHARGE NURSE AT [facility], REPORT GIVEN. MADE DR SALEH AWARE, PT WILL BE DC'D TO [facility]. NOTIFIED ELIZABETH VERGARA'S FRIEND.
[2018-04-04 16:00] VITALS: BP 131/81
--- NOTE | 2018-04-04 17:50 | NUR ---
PT LEFT WITH [facility] BY WHEEL CHAIR. GOING TO [facility]. Addendum: 04/04/18 at 1810 by Nabeel Lawton RN PT HAS NOT EAT DINNER YET. ONE JUICE WAS GIVEN TO PT SO HE CAN DRINK IT ON HIS WAY.
[2018-04-14 09:13] LABS: T4 (THYROXINE) 6.6 ug/dL (4.5-12.0)
== END 2018-04-04 18:00 | DRG 45 ==
LOC: MED 09:11 → MTU 11:37
PROVIDERS: ADMIT General Practice; ATTEND General Practice
PROC: 3E02340 Introduction of Influenza Vaccine into Muscle, Percutaneous Approach (ICD-10-PCS; principal; 2018-04-03)
PROC: 3E0234Z Introduction of Serum, Toxoid and Vaccine into Muscle, Percutaneous Approach (ICD-10-PCS; 2018-04-03)
DX: I63.89 Other cerebral infarction (principal); S09.90XA Unspecified injury of head, initial encounter; G90.9 Disorder of the autonomic nervous system, unspecified; E11.65 Type 2 diabetes mellitus with hyperglycemia; G37.9 Demyelinating disease of central nervous system, unspecified; E78.5 Hyperlipidemia, unspecified; W18.30XA Fall on same level, unspecified, initial encounter; Y92.239 Unspecified place in hospital as the place of occurrence of the external cause; Z23 Encounter for immunization; Z79.4 Long term (current) use of insulin; Z86.73 Personal history of transient ischemic attack (TIA), and cerebral infarction without residual deficits; Z80.0 Family history of malignant neoplasm of digestive organs; Z82.5 Family history of asthma and other chronic lower respiratory diseases; Y93.89 Activity, other specified; Y99.8 Other external cause status
CPT/HCPCS: 36415; 70450; 71045; 80048; 80053; 80305; 81003; 82140; 82150; 82948; 83036; 83690; 83735; 83880; 84100; 84436; 84443; 84484; 85025; 85610; 85730; 86886; 86900; 86901; 87081; 90658; 90732; 93005; 93880; 93925; 93970; 96360; 96372; 97110; 97116; 97530; 99285; G0482; J1815; J7030; Q0092